=== PATIENT | female | born 1940 | race Caucasian/White ===

== ENCOUNTER 2018-10-06 12:03 | Observation (INO) | payer MEDICARE, BC ==
[~2018-10-06] VITALS: Ht 162.6 cm; Wt 109.0 kg
[2018-10-06] MEDS ORDERED: ZYLOPRIM 100MG100 MG PO (12:46)
[2018-10-06] MEDS ORDERED: ASPIRIN 32325 MG/TAB PO (12:47)
[2018-10-06] MEDS ORDERED: ATORVASTATIN CA40 MG PO (12:47)
[2018-10-06] MEDS ORDERED: OSCAL W/VIT D250 MG PO (12:48)
[2018-10-06] MEDS ORDERED: CARVEDILOL25 MG PO (12:48)
[2018-10-06] MEDS ORDERED: FERROUS SULFAT325 M4 PO (12:49)
[2018-10-06 12:50] LABS: EOS # 0.2 (0.04-0.40); EOS % 2.9 % (1.0-5.0); HEMATOCRIT 31.7 % (37.0-47.0); HEMOGLOBIN 9.8 g/dL (12.5-16.0); LYMPH# 1.1 (1.50-4.00); MEAN CELL VOLUME 100 fl (78-100); MEAN CORPUSCULAR HEMOGLOBIN 31 pg (27-31); MEAN CORPUSCULAR HGB CONC 31 g/dL (33-37); MEAN PLATELET VOLUME 9.4 fl (7.4-10.4); MONO # 0.4 (0.20-0.80); NEU # 5.9 (1.40-6.50); PLATELET COUNT 171 K/mm3 (130-400); RED BLOOD COUNT 3.17 M/mm3 (4.10-5.30); RED CELL DISTRIBUTION WIDTH 14.9 % (11.5-14.5); WHITE BLOOD COUNT 7.7 K/mm3 (4.8-10.8)
[2018-10-06] MEDS ORDERED: SULFAZINE500 M1 PO (12:50)
[2018-10-06] MEDS ORDERED: PRAMIPEXOLE D0.25 MG PO (12:50)
[2018-10-06] MEDS ORDERED: HYDROCORTISONE20 MG PO (12:50)
[2018-10-06] MEDS ORDERED: PREDNISONE 5MG5 MG PO (12:50)
[2018-10-06] MEDS ORDERED: OMEPRAZOLE D/R20 MG PO (12:50)
[2018-10-06] MEDS ORDERED: LISINOPRIL40 MG PO (12:50)
[2018-10-06] MEDS ORDERED: POTASSIUM CHLO10 ME8 PO (12:50)
[2018-10-06] MEDS ORDERED: METFORMIN HYD1000 MG PO (12:50)
[2018-10-06] MEDS ORDERED: LASIX 80MG TABL80 MG PO (12:50)
[2018-10-06] MEDS ORDERED: DULOXETINE60 MG PO (12:51)
[2018-10-06 13:16] LABS: TROPONIN-I < 0.03 ng/mL (0.00-0.06)
[2018-10-06 13:50] LABS: ALBUMIN 3.7 g/dL (3.5-5.0); CALCIUM 8.5 mg/dL (8.4-10.2); POTASSIUM 3.9 mmol/L (3.6-5.0); TOTAL BILIRUBIN 0.3 mg/dL (0.2-1.3); TOTAL PROTEIN 6.4 g/dL (6.3-8.2)
[2018-10-06 16:00] VITALS: BP 153/51
--- NOTE | 2018-10-06 16:00 | NUR ---
Pt admitted to room 206 for observation of her bronchitis as she was not doing well of taking care of herself at home as her is her primary critical care unit manager and he is in the hospital. Son at bedside. Pt denies any pain. Maintains o2 sats at low 90s on room air. Has wet productive cough. Lungs are diminished through out with wheezes. BLE red with small blisters noted. Pt reported she was on doxycycline for but unable to finish due it causing her heart burn. Pt also reports that she hasnt taken her medications in a couple days due to feeling so poor. Call light in reach will continue to monitor
[2018-10-06 16:02] VITALS: BP 153/51
--- NOTE | 2018-10-06 18:00 | NUR ---
Pt dozing off in bed. SP02 drops to 87% oxygen applied at 2L per nasal cannula
--- NOTE | 2018-10-06 18:05 | NUR ---
Pt educated on carb control diabetic diet as patient has ate all of supper tray and had her family bring her pop and candy she ate and is now asking for 2 honey buns from family. Pt agrees to save honey buns for later
[2018-10-06 18:59] VITALS: BP 109/60
--- NOTE | 2018-10-06 19:06 | NUR ---
REPORT RECEIVED FROM ROGELIO Nascimento RN.
[2018-10-06 23:00] VITALS: BP 139/69
[2018-10-07 03:14] VITALS: BP 114/63
--- NOTE | 2018-10-07 04:59 | NUR ---
PATIENT UP AND TO THE BATHROOM. SHE PROVIDES SMALL AMOUNT OF URINE FOR U/A SAMPLE. PATIENT DOES NOT APPEAR TO BE IN ANY OBVIOUS DISTRESS AT THIS TIME. PATIENT DENIES ANY PAIN. PATIENT IS ALERT AND ORIENTED, PLEASANT AND COOPERATIVE. SHE AMBULATES TO BATHROOM WITH STANDBY ASSIST. PATIENT HAS NO COMPLAINTS OR REQUESTS AT THIS TIME. PATIENT HAS CHANGED HER POSITION IN BED INDEPENDENTLY THROUGHOUT THE NIGHT. BED ALARM ARMED AT ALL TIMES. CALL LIGHT WITHIN REACH. CLOSE MONITORING AND HOURLY ROUNDING CONTINUE.
[2018-10-07 06:21] VITALS: BP 138/65
--- NOTE | 2018-10-07 07:21 | NUR ---
REPORT GIVEN TO LEONEL Coffman RN.
[2018-10-07 07:23] LABS: URINE APPEARANCE HAZY; URINE BILIRUBIN NEGATIVE (NEGATIVE); URINE BLOOD NEGATIVE (NEGATIVE); URINE COLOR YELLOW; URINE KETONE NEGATIVE (NEGATIVE); URINE LEUKOCYTE ESTERASE NEGATIVE (NEGATIVE); URINE MUCUS PRESENT (NOT PRESENT); URINE NITRATE NEGATIVE (NEGATIVE); URINE PROTEIN(semi-quant) 1+ mg/dL (NEGATIVE); URINE UROBILINOGEN NORMAL (NORMAL)
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
--- NOTE | 2018-10-07 09:45 | NUR ---
AMBULATES TO AND FROM BATHROOM WITH STEADY GAIT USING WALKER. PASSES LOOSE MEDIUM BM. AFTER ACTIVITY, PATIENT CHOOSES TO REST IN BED. PULSE 93. RESPIRATIONS 24. SAO2 92% ROOM AIR.
--- NOTE | 2018-10-07 10:00 | NUR ---
DISCREPANCIES NOTED TO PATIENT MED REC. THESE ARE CORRECTED AND REPORTED TO JABARI HAHN. PATIENT OWN PREDNISONE AND HYDROCORTISONE NOT AVAILABLE AT THIS TIME AND NOT GIVEN. PATIENT MAY DISCHARGE HOME TODAY. NO NEW ORDERS AT THIS TIME.
[2018-10-07 11:01] VITALS: BP 142/69
--- NOTE | 2018-10-07 12:40 | NUR ---
MARILYN DE LA [employer]ORREWASH BARREL LEADER CONFIRMS WITH MARGE FAITH, PATIENT'S DAUGHTER, THAT PATIENT WILL DISCHARGE TO HER HOUSE FOLLOWING OBSERVATION STAY.
--- NOTE | 2018-10-07 12:45 | NUR ---
JABARI ALLISONN NOTIFIED OF FSBS 334. NO ORDERS RECEIVED AT THIS TIME.
[2018-10-07 13:08] LABS: HEMATOCRIT 31.9 % (37.0-47.0); HEMOGLOBIN 9.8 g/dL (12.5-16.0); MEAN CELL VOLUME 100 fl (78-100); MEAN CORPUSCULAR HEMOGLOBIN 31 pg (27-31); MEAN CORPUSCULAR HGB CONC 31 g/dL (33-37); MEAN PLATELET VOLUME 9.2 fl (7.4-10.4); PLATELET COUNT 187 K/mm3 (130-400); RED BLOOD COUNT 3.18 M/mm3 (4.10-5.30); RED CELL DISTRIBUTION WIDTH 14.8 % (11.5-14.5); WHITE BLOOD COUNT 8.6 K/mm3 (4.8-10.8)
--- NOTE | 2018-10-07 13:34 | NUR ---
Pt states that she is going home w/ her daughter, Sissy. Sissy is called and Sissy confirms that this is true, but she is at work and when pt is discharged, her brother, pt's son, Cleve, will need to be notified to come and get pt and bring her to her home. Sissy states that she will be off after tomorrow and in the meantime her who is disability retired will be at home to help provide 24/7 caregiver assistance. Nursing staff is notified as is attending Provider and phone numbers to Cleve and Sissy are provided.
[2018-10-07 13:51] LABS: LYMPHOCYTE 6 % (20-51); MONOCYTE 4 % (3-10); NEUTROPHILS 90 % (42-75)
[2018-10-07 13:52] LABS: HYPOCHROMIA 1+; POLYCHROMASIA 1+
--- NOTE | 2018-10-07 15:13 | NUR ---
SON PRESENT TO TRANSPORT PATIENT HOME. DISCHARGE ORDERS IN PROCESS BY JABARI HAHN. PATIENT UPDATED.
[2018-10-07 15:23] LABS: CALCIUM 8.5 mg/dL (8.4-10.2)
[2018-10-07 15:26] VITALS: BP 124/68
[2018-10-07] MEDS ORDERED: ALBUTEROL2.5 MG/3 M IH (15:58)
[2018-10-07] MEDS ORDERED: ZITHROMAX 250M250 MG PO (16:00)
[2018-10-07] MEDS ORDERED: PREDNISONE20 M1 PO (16:00)
[2018-10-07] MEDS ORDERED: AEROSOL THERAPY1 DEV INH (16:00)
--- NOTE | 2018-10-07 16:15 | NUR ---
DC INSTRUCTIONS REVIEWED WITH PATIENT AND HER SON. MED CHANGES REVIEWED. NEW MEDS CALLED TO [facility]. PATIENT VERBALIZES UNDERSTANDING.
--- NOTE | 2018-10-07 16:35 | NUR ---
PATIENT LEAVES FACILITY AT THIS TIME VIA W/C TO SON'S VEHICLE.
== END 2018-10-07 16:35 | disposition home or self-care (01) ==
LOC: ED 12:03 → MED/SURG 15:41
PROVIDERS: Nurse Practitioner Primary Care; ADMIT Family Medicine
DX: J20.9 Acute bronchitis, unspecified (principal); E27.1 Primary adrenocortical insufficiency; J44.9 Chronic obstructive pulmonary disease, unspecified; R53.1 Weakness; Z79.51 Long term (current) use of inhaled steroids; Z79.82 Long term (current) use of aspirin; Z79.84 Long term (current) use of oral hypoglycemic drugs; Z88.8 Allergy status to other drugs, medicaments and biological substances
CPT/HCPCS: A4216; G0378; J0696; J1650; J2920; J7030